=== PATIENT | female | born 1985 | race African-American/Black ===

== ENCOUNTER 2023-02-14 18:24 | Emergency (ER) | payer OTHER ==
[~2023-02-14] VITALS: Ht 152.4 cm; Wt 98.7 kg
[2023-02-14 18:29] VITALS: TEMP 98.5
[2023-02-14 19:56] LABS: PLATELET COUNT 287 K/uL (152-353)
[2023-02-14 20:04] LABS: POTASSIUM 4.2 mmol/L (3.6-5.2)
[2023-02-14 22:00] VITALS: BP 132/74
== END 2023-02-14 22:00 | disposition home or self-care (01) ==
LOC: ED 18:24
PROVIDERS: Emergency Medicine
DX: R10.13 Epigastric pain (principal); K21.9 Gastro-esophageal reflux disease without esophagitis
CPT/HCPCS: 36415; 80053; 81000; 81025; 83690; 84484; 85027; 93005; 96361; 96374; 96375; 99284; J2270; J2405; J3490; Q9963